=== PATIENT | female | born 1985 | race Caucasian/White ===

== ENCOUNTER 2022-01-25 10:32 | Emergency (ER) | payer MEDICARE, MEDICAID, SELFPAY ==
--- NOTE | ~2022-01-25 | XR_ITS ---
XR lumbar spine 2-3V 01/25/2022 12:38 Indication: Back pain Procedure: 3 views lumbar spine Comparison: 12/31/2015 Findings: Vertebral body and disc heights are preserved. No fracture, subluxation or dislocation. The re are bilateral hip arthroplasties. Pedicles intact. No evidence for spondylolisthesis. Impression: 1: No acute abnormality of the lumbar spine. Reviewed, dictated and finalized at location B. Impression: 1: No acute abnormality of the lumbar spine.
--- NOTE | ~2022-01-25 | XR_ITS ---
EXAMINATION: XR hip LT min 3V w AP pelvis DATE: 01/25/2022 12:38 INDICATION: Left hip pain TECHNIQUE: Anteroposterior view of the pelvis and anteroposterior, frog leg and cross-table lateral v iews of the left hip were obtained. COMPARISON: None. FINDINGS: Bilateral total hip arthroplasties. Demonstrate eccentric positioning of the femoral heads within the acetabular component consistent with asymmetric polyethylene liner wear. There is increased peripros thetic lucency surrounding the left acetabular component and at least one of the 3 acetabular fixatio n screws. There is secondary loosening of the left acetabular component with cephalad migration and a more vertical orientation of the acetabular component within the now enlarged left acetabulum. No pe riprosthetic lucency surrounding the right acetabular component or the bilateral femoral components. No acute fracture. Mild bilateral sacral iliac osteoarthritis. Tubal ligation clips in the left and r ight pelvis. IMPRESSION: 1. 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 2. Progressive osteolysis surrounding the loose acetabular component of a left total hip arthroplasty which is now positioned more cephalad and with a more vertical orientation. This is most likely rela ioana to particle disease although differential would include septic arthritis in the appropriate clini lukas setting. Reviewed, dictated and finalized at location A. IMPRESSION: 1. Asymmetric polyethylene liner wear at both the left and right total hip arth roplasty with eccentric positioning of the femoral heads within the acetabular components. 2. Progressive osteolysis surrounding the loose acetabular component of a left total hip arthroplasty which is now positioned more cephalad and with a more ve rtical orientation. This is most likely related to particle disease although di fferential would include septic arthritis in the appropriate clinical setting.
[2022-01-25 10:34] VITALS: BP 116/66; PULSE 95; RESP 20; TEMP 36.9; O2SAT 100
--- NOTE | 2022-01-25 11:41 | ED.BACK ---
HPI - Back Pain/Injury General Chief Complaint: Back Pain/Injury Stated Complaint: Back Pain Time Seen by Provider: 01/25/22 11:20 History of Present Illness HPI Narrative: 36-year-old female presents the emergency room with acute onset of left hip pain that radiates down into her groin. 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 Patient states that she is having difficulty walking with her walker. Patient denies any saddle anesthesia. Patient reports a clicking sound in her left hip when she attempts to ambulate. Related Data Allergies Allergy/AdvReac Type Severity Reaction Status Date / Time bacitracin Allergy Severe RESP/THROAT Verified 01/25/22 10:38 SWELLS azithromycin Allergy Unknown Difficulty Verified 01/25/22 10:38 Breathing clarithromycin Allergy Unknown Difficulty Verified 01/25/22 10:38 Breathing enoxaparin Allergy Unknown Fever Verified 01/25/22 10:38 erythromycin base Allergy Unknown Dyspnea / Verified 01/25/22 10:38 SOB levofloxacin Allergy Unknown Dyspnea / Verified 01/25/22 10:38 SOB meperidine Allergy Unknown Dyspnea / Verified 01/25/22 10:38 SOB nitrofurantoin Allergy Unknown Unknown Verified 01/25/22 10:38 Penicillins Allergy Unknown Dyspnea / Verified 01/25/22 10:38 SOB DICLOFENAC SODIUM Allergy Intermediate rash, Uncoded 01/25/22 10:38 ENOXAPARIN SODIUM Allergy Intermediate skin Uncoded 01/25/22 10:38 turned red with itching MEPERIDINE HCL Allergy Unknown Dyspnea / Uncoded 01/25/22 10:38 SOB NITROFURANTOIN MACROCRYSTAL Allergy Unknown Dyspnea / Uncoded 01/25/22 10:38 SOB HYDROCODONE BIT AdvReac Mild GI UPSET Uncoded 01/25/22 10:38 AND/OR H/A Review of Systems Review of Systems: CONSTITUTIONAL: Denies fever, chills, or sweats. EYES: Denies visual changes, redness, or discharge. ENT: Denies rhinorrhea, congestion, sore throat, or otalgia. CARDIOVASCULAR: Denies chest pain, palpitations, or edema. RESPIRATORY: Denies cough or dyspnea. GASTROINTESTINAL: Denies abdominal pain, nausea, vomiting, or diarrhea. GENITOURINARY: Denies dysuria or hematuria. SKIN: Denies rash or itching. MUSCULOSKELETAL: Reports lumbar spine pain, reports left hip pain NEUROLOGIC: Denies headache, numbness, dizziness, or weakness. Burning in left lower extremity PSYCHIATRIC: Denies anxiety or depression. [facility] Family History Family History Father Family history of mental disorder Depression Mother Hypertension Family history of diabetes mellitus in first degree relative Social History Social History Second hand tobacco smoke exposure: Yes Smoking end date: 11/12/09 Alcohol intake: current Exam Narrative: GENERAL: Well-appearing, well-nourished, and in no acute distress. HEAD: Normocephalic, atraumatic. EYES: PERRLA and EOMI. ENT: Nares clear, no rhinorrhea or epistaxis. Mucous membranes moist. Oropharynx without tonsillar hypertrophy exudate or other lesions. Bilateral TMs pearly jackson nonbulging NECK: Supple. No adenopathy or masses. No carotid bruits or JVD CHEST: Clear to auscultation. No respiratory distress. No wheezes rales or rhonchi HEART: Regular rate and rhythm. No murmur heard. Normal peripheral pulses. ABDOMEN: Soft, nontender, nondistended, normal active bowel sounds. EXTREMITIES: Normal range of motion. No edema. Tenderness to the left gluteal region. Unable to evaluate range of motion with left hip due to pain. neurovascular is distally intact and left lower extremity SKIN: Warm, dry, no rash. NEURO: No focal deficits. Alert and oriented x3. PSYCH: Normal mood and affect. Course Vital Signs Vital signs: Vital Signs Temperature 36.9 C 01/25/22 10:34 Pulse Rate 95 01/25/22 10:34 Respiratory Rate 20 01/25/22 10:34 Blood Pressure 116/66 01/25/22 10:34 Pulse Oximetry 100
[2022-01-25] MEDS: KETOROLAC 30 MG/ML VIAL (*BKC) IV PUSH (11:52)
[2022-01-25 13:00] VITALS: BP 138/78; PULSE 84; RESP 16; TEMP 36.4; O2SAT 100
[2022-01-25 14:00] VITALS: BP 142/70; PULSE 80; RESP 16; O2SAT 98
[2022-01-25 14:25] LABS: Basophils Absolute Auto 0.1 K/mm3 (0.0-0.1); Basophils Percent Auto 0.3 % (0.2-1.2); Eosinophils Percent Auto 0.1 % (0-4.4); Hemoglobin 13.6 g/dL (12.0-15.0); Immature Granulocyte Absolute 0.07 K/mm3 (0.00-0.031); Immature Granulocyte Percent A 0.4 % (0-0.5); Lymphocytes Absolute Auto 0.61 K/mm3 (0.9-3.2); Lymphocytes Percent Auto 3.3 % (18.3-44.2); Mean Corpuscular HGB Conc 33.2 g/dl (32-36); Mean Corpuscular Hemoglobin 30.2 pg (26-34); Mean Corpuscular Volume 90.9 fl (80-100); Mean Platelet Volume 11.3 fl (7.4-10.4); Monocytes Absolute Auto 0.2 K/mm3 (0.1-0.6); Monocytes Percent Auto 0.9 % (2.6-8.5); Neutrophils Absolute Auto 17.6 K/mm3 (1.3-6.7); Platelet Count Result 247 k/mm3 (150-375); Red Blood Count 4.51 M/mm3 (4.2-5.4); Red Cell Distribution Width 13.1 % (11.5-14.5); White Blood Count 18.6 K/mm3 (4.5-10.0)
[2022-01-25 14:33] LABS: Alanine Aminotransferase 14 U/L (4-35); Albumin Level 4.4 g/dL (3.5-5.1); Alkaline Phosphatase 95 U/L (38-126); Anion Gap 9 mmol/L (8-16); Aspartate Amino Transferase 24 U/L (14-36); Bilirubin,Total 0.5 mg/dL (0.2-1.3); Blood Urea Nitrogen 10 mg/dL (7-17); Calcium 8.9 mg/dL (8.4-10.2); Carbon Dioxide 27 mmol/L (22-30); Chloride 103 mmol/L (98-107); Estimated CRCL calculation 93 ml/min; Estimated Glomerular Filt Rate > 60; Glucose 106 mg/dL (65-110); Potassium 3.9 mmol/L (3.4-5.0); Sodium 139 mmol/L (137-145)
[2022-01-25 14:45] VITALS: BP 144/80; PULSE 88; RESP 16; TEMP 37; O2SAT 100
[2022-01-25 14:57] LABS: Erythrocyte Sedimentation Rate 30 mm/hr (0-20)
--- NOTE | 2022-01-25 15:06 | PC.NURSE ---
PT CALL AND NOTIFIED OF ELEVATED WBC AND SEPTIC ARTHRITIS AND IMPORTANCE OF BEING TREATED. PT VOICED UNDERSTANDING AND REPORTS SHE IS GOING TO [facility] AND CALL OTHO DOCTOR AND FOLLOW HIS INSTRUCTIONS.
== END 2022-01-25 14:45 | disposition left against medical advice (07) ==
PROVIDERS: Emergency Provider Nurse Practitioner Family
DX: M25.552 Pain in left hip (principal); Z96.643 Presence of artificial hip joint, bilateral; Z87.891 Personal history of nicotine dependence
CPT/HCPCS: 36415; 72100; 73502; 80053; 85025; 85652; 96374; 96375; 99284; J1100; J1885

== ENCOUNTER 2022-07-24 13:15 | Outpatient (CLI) | payer MEDICARE, MEDICAID, SELFPAY ==
--- NOTE | ~2022-07-24 | DEXA_ITS ---
Bone Density Report Name: BARNEY PAIZ Age: 37 Sex: Female Ethnicity: White Date of : 1985 Indication: prior fracture; seizure disorder; Referring Provider: BINH, JORDAN Mott Study: Bone densitometry was performed. Exam Date: July 24, 2022 Accession number: [id number] Bone Density: Region BMD T-score Z-score Classification AP Spine(L1-L4) 0.816 -1.9 World Health Organization criteria for BMD impression classify patients as: Normal (T-score at or above -1.0), Osteopenia (T-score between -1.0 and -2.5), or Osteoporosis (T-score at or below -2.5). Clinical Information Provided by Patient: Has had a low trauma fracture Smokes Has the following medical conditions: Any Seizure Disorders Patient maximum height was 65 No regular weight bearing exercise Drinks caffeinated beverages Onset of menses at age 13 Premenopausal Number of children 2 Missed period for more than 6 months in a row Impression: The patient's bone mass is within expected range for age, gender and ethnicity. The patient has risk factors, including: smoking, previous fracture. Discussion: BONE DENSITY IS WITHIN EXPECTED LIMITS FOR AGE, SEX AND RACE. Bone density is within expected limits for age, sex and race at all sites measured. The patient should follow a healthful lifestyle (good nutrition with adequate calcium and vitamin D, and appropriate weight-bearing exercise). Follow-Up: Consider repeating this study in 5 years or sooner if there is some new clinical indication. Reported by: ERICA on 07/24/2022 1:41:00 PM. Reviewed, dictated and finalized at location AAbraham ALANIZ
== END 2022-07-24 13:16 | disposition home or self-care (01) ==
PROVIDERS: Visit Provider Family Medicine
DX: M81.6 Localized osteoporosis [Lequesne] (principal)
CPT/HCPCS: 77080

== ENCOUNTER 2023-03-16 15:12 | Outpatient (CLI) | payer MEDICARE, MEDICAID, SELFPAY ==
--- NOTE | ~2023-03-16 | XR_ITS ---
EXAM: XR foot RT standing 2V DATE: 03/16/2023 16:55 HISTORY: M19.90 - Unspecified osteoarthritis, unspecified site . COMPARISON: 12/25/2015. FINDINGS: Normal mineralization. No fracture or dislocation. No lytic or blastic lesion. Joint space s and physes are maintained. No erosion or periosteal change. Soft tissues within normal limits. IMPRESSION: Unremarkable right foot radiograph findings. Reviewed, dictated and finalized at location K.
--- NOTE | ~2023-03-16 | XR_ITS ---
EXAM: XR lumbar spine min 4V DATE: 03/16/2023 16:55 HISTORY: M87.051 - Idiopathic aseptic necrosis of right femur . COMPARISON: 01/25/2022; CT pelvis 12/21/2016. FINDINGS: 5 nonrib-bearing lumbar-type vertebral bodies. Pedicles intact. Normal vertebral body alig nment. Vertebral body heights preserved. Mild disc space narrowing at L4-5 and L5-S1. Normal facets a nd posterior elements. No pars defect. No fracture or dislocation. Tubal ligation clips. Possible pernell er wear, otherwise uncomplicated appearing right hip arthroplasty hardware. Left hip arthroplasty milena dwpatricia, partially visualized, with significant perihilar hardware lucency and superior migration, incr eased since the prior studies. IMPRESSION: Progressive loosening or infection involving the left hip arthroplasty. Mild lower lumbar degenerative disc disease. Otherwise unremarkable lumbar spine radiograph findings. Reviewed, dictated and finalized at location K. IMPRESSION: Progressive loosening or infection involving the left hip arthropla sty. Mild lower lumbar degenerative disc disease. Otherwise unremarkable lumbar spine radiograph findings.
--- NOTE | ~2023-03-16 | XR_ITS ---
EXAM: XR foot LT standing 2V DATE: 03/16/2023 16:55 HISTORY: M19.90 - Unspecified osteoarthritis, unspecified site . COMPARISON: None available. FINDINGS: Normal mineralization. No fracture or dislocation. No lytic or blastic lesion. Minimal nilay ntar enthesopathy. Mild degenerative change at the talonavicular joint and the articulation of the ca lcaneus and cuboid No erosion or periosteal change. Soft tissues within normal limits. IMPRESSION: Mild polyarticular osteoarthritis of the midfoot. Plantar enthesopathy. Reviewed, dictated and finalized at location K. IMPRESSION: Mild polyarticular osteoarthritis of the midfoot. Plantar enthesopa thy.
--- NOTE | ~2023-03-16 | XR_ITS ---
EXAM: XR hand BI arthritis min 3V DATE: 03/16/2023 16:55 HISTORY: M19.90 - Unspecified osteoarthritis, unspecified site . COMPARISON: X-ray left hand and wrist 05/23/2017; x-ray right wrist 09/19/2012. FINDINGS: Normal mineralization. No fracture or dislocation. No lytic or blastic lesion. Mild sclero sis and subchondral cyst formation in the proximal pole of the left scaphoid. Joint spaces are mainta ined. No erosion or periosteal change. Soft tissues within normal limits. IMPRESSION: Chronic changes in the proximal pole of the left scaphoid bone, correlate with history of prior injury and clinical symptoms of snuffbox tenderness. Otherwise unremarkable bilateral hand rad iograph findings. Reviewed, dictated and finalized at location K. IMPRESSION: Chronic changes in the proximal pole of the left scaphoid bone, cor relate with history of prior injury and clinical symptoms of snuffbox tendernes s. Otherwise unremarkable bilateral hand radiograph findings.
--- NOTE | ~2023-03-16 | XR_ITS ---
EXAMINATION: XR cervical spine 4-5V DATE: 03/16/2023 16:55 INDICATION: Unspecified osteoarthritis, unspecified site. TECHNIQUE: 4 views of cervical spine were obtained. COMPARISON: None. FINDINGS: There is 13 degrees levoscoliosis of cervicothoracic spine. There is 9 degrees levocurvatur e of upper cervical spine and 7 degrees dextrocurvature of mid cervical spine. There is kyphosis of c ervical spine. There is 2 mm anterolisthesis of C4 on C5. Vertebral body heights are normal. There is moderately decreased disc height at C4-C5 and severely decreased disc height at C5-C6 and C6-C7. The re is multilevel uncovertebral joint osteoarthritis, severe on the right at C3-C4, severe on the left at C4-C5 and C5-C6, and severe bilaterally at C6-C7. There is multilevel mild to moderate facet join t osteoarthritis. There is mild central canal stenosis at C4-C5, C5-C6, and C6-C7. No prevertebral so ft tissue swelling. IMPRESSION: 1. Severe cervical spondylosis. 2. Scoliosis. Reviewed, dictated and finalized at location A.
[2023-03-16 18:18] LABS: Basophils Percent Auto 0.3 % (0.2-1.2); Eosinophils Absolute Auto 0.1 K/mm3 (0-0.3); Eosinophils Percent Auto 1.1 % (0-4.4); Hematocrit 40.9 % (37.0-47.0); Hemoglobin 13.1 g/dL (12.0-15.0); Immature Granulocyte Absolute 0.03 K/mm3 (0.00-0.031); Immature Granulocyte Percent A 0.3 % (0-0.5); Lymphocytes Absolute Auto 2.04 K/mm3 (0.9-3.2); Lymphocytes Percent Auto 18.9 % (18.3-44.2); Mean Corpuscular Hemoglobin 28.1 pg (26-34); Mean Corpuscular Volume 87.6 fl (80-100); Mean Platelet Volume 10.2 fl (7.4-10.4); Monocytes Absolute Auto 1.1 K/mm3 (0.1-0.6); Monocytes Percent Auto 9.8 % (2.6-8.5); Neutrophils Absolute Auto 7.5 K/mm3 (1.3-6.7); Neutrophils Percent Auto 69.6 % (45.5-73.1); Platelet Count Result 401 k/mm3 (150-375); Red Blood Count 4.67 M/mm3 (4.2-5.4); Red Cell Distribution Width 14.2 % (11.5-14.5); White Blood Count 10.8 K/mm3 (4.5-10.0)
[2023-03-16 18:54] LABS: Alanine Aminotransferase 21 U/L (6-35); Albumin Level 4.7 g/dL (3.5-5.1); Alkaline Phosphatase 118 U/L (38-126); Anion Gap 9 mmol/L (8-16); Aspartate Amino Transferase 21 U/L (14-36); Bilirubin,Total 0.6 mg/dL (0.2-1.3); Blood Urea Nitrogen 20 mg/dL (7-17); Calcium 8.7 mg/dL (8.4-10.2); Carbon Dioxide 33 mmol/L (22-30); Chloride 97 mmol/L (98-107); Estimated Glomerular Filt Rate > 60; Glucose 42 mg/dL (65-110); Potassium 3.3 mmol/L (3.4-5.0); Sodium 139 mmol/L (137-145); Uric Acid 3.2 mg/dL (2.5-7.5)
[2023-03-16 19:06] LABS: Vitamin D 25 Hydroxy 21.5 ng/mL
[2023-03-16 19:26] LABS: Hepatitis B Surface Antigen Negative (Negative)
[2023-03-16 19:45] LABS: Hepatitis B Surface Anti Res Positive; Hepatitis C Virus Antibody Negative (Negative)
[2023-03-16 21:07] LABS: Complement C3 125 mg/dL (88-165); Rheumatoid Factor < 12.0 IU/ML (<12)
[2023-03-19 10:06] LABS: Rapid Plasma Reagin Non-Reactive (NonReactive)
[2023-03-20 20:10] LABS: SM Antibody <1.0; SM/RNP Antibody <1.0; SS-A <1.0; SS-B <1.0
[2023-03-21 22:01] LABS: Anti Cyclic Citrullinated Pept <16 Units (<20)
[2023-03-22 02:56] LABS: HIV 1 2 Ag Ab 4th Gen w Rflxs Nonreactive (Nonreactive)
[2023-03-22 06:43] LABS: Lupus dRVVT Screen 39 sec (<=45); PTT-LA Screen 38 sec (<=40)
[2023-03-22 18:51] LABS: Anti Cardio Antibody IgM 2.8 MPL-U/mL (<20.0); Anti Cardiolipin Antibody IgA <2.0 APL-U/mL (<20.0); Anti Cardiolipin Antibody IgG 2.5 GPL-U/mL (<20.0)
[2023-04-04 11:57] LABS: Reference Lab Test Result <0.2
== END 2023-03-16 15:13 | disposition home or self-care (01) ==
PROVIDERS: PCP Family Medicine; Visit Provider Internal Medicine
DX: M81.0 Age-related osteoporosis without current pathological fracture (principal); M87.051 Idiopathic aseptic necrosis of right femur; M87.052 Idiopathic aseptic necrosis of left femur; M47.892 Other spondylosis, cervical region; M41.9 Scoliosis, unspecified; M19.072 Primary osteoarthritis, left ankle and foot
CPT/HCPCS: 36415; 72050; 72110; 73130; 73620; 80053; 82306; 84550; 85025; 85613; 85730; 86038; 86146; 86147; 86160; 86200; 86225; 86235; 86430; 86592; 86706; 86803; 87340; 87389